=== PATIENT | female | born 1975 | race Caucasian/White ===

== ENCOUNTER → 2016-06-11 | Outpatient (CLI) | payer OTHER ==
[~2016-06-11] MED LIST: CLIMARA0.075 MG/2 TD; GLUCOPHAGE500 MG/TAB PO; IRON325 MG PO; MAGNESIUM500 MG PO; METHAMAZOLE; PRINIVIL20 MG; STOOL SOFTENER; TAPAZOLE5 MG PO
== END ==
LOC: COL.RAD 09:59
DX: E05.21 Thyrotoxicosis with toxic multinodular goiter with thyrotoxic crisis or storm (principal)
CPT/HCPCS: A9516

== ENCOUNTER → 2019-11-27 | Outpatient (CLI) | payer OTHER | LOC: COL.RAD 07:30 | DX: H91.23 Sudden idiopathic hearing loss, bilateral (principal); H90.41 Sensorineural hearing loss, unilateral, right ear, with unrestricted hearing on the contralateral side | CPT/HCPCS: A9585 ==

== ENCOUNTER 2020-12-28 21:56 | Inpatient (IN) | payer OTHER ==
[~2020-12-28] VITALS: Wt 86.4 kg
[2020-12-28 22:26] LABS: BASO % 0.3 % (0.0-2.0); EOS # 0.3 K/mm3 (0.0-0.7); EOS % 2.2 % (0-4.0); GRAN # 10.4 K/mm3 (1.4-6.5); GRAN % 67.8 % (42.2-75.2); HEMATOCRIT 45.9 % (37.0-47.0); HEMOGLOBIN 15.3 g/dl (12.5-16.0); LYMPH # 3.7 K/mm3 (1.2-3.4); LYMPH % 23.9 % (20.0-51.0); MEAN CELL VOLUME 81 fl (80.0-100.0); MEAN CORPUSCULAR HEMOGLOBIN 27 pg (27.0-31.0); MEAN CORPUSCULAR HGB CONC 33 g/dl (33.0-37.0); MEAN PLATELET VOLUME 10.8 fl (7.4-10.4); MONO # 0.9 K/mm3 (0.1-0.6); MONO % 5.5 % (1.7-9.3); PLATELET COUNT 303 K/mm3 (130-400)
[2020-12-28 22:40] LABS: COLLECTION METHOD CLEAN CATCH
[2020-12-28 22:41] LABS: ALBUMIN 4.2 gm/dL (3.5-5.0); C-REACTIVE PROTEIN 0.84 mg/dL (0.00-0.50); CALCIUM 9.9 mg/dL (8.4-10.2); CREATININE, serum 0.83 mg/dL (0.57-1.11); TOTAL PROTEIN 8.2 gm/dL (6.2-8.1)
[2020-12-28 22:57] LABS: MUCOUS Present /lpf; PH 7 (5-8); URINE APPEARANCE Hazy; URINE BACTERIA None Seen /hpf; URINE BILIRUBIN Negative (NEGATIVE); URINE BLOOD 1+ (NEGATIVE); URINE COLOR Yellow; URINE GLUCOSE 3+ (NEGATIVE); URINE KETONE Negative (NEGATIVE); URINE LEUKOCYTE ESTERASE Negative (NEGATIVE); URINE NITRATE Negative (NEGATIVE); URINE PROTEIN(semi-quant) Negative (NEGATIVE); URINE RBC 0-2 /hpf
--- NOTE | 2020-12-29 01:31 | NUR ---
Arrived to unit, awake, alert, oriented x 4, able to make all needs known, pain 5/10 to abdomen, c/o light nausea,NPO status observed, updated on plan of care.
[2020-12-29] MEDS ORDERED: GLUCOPHAGE1000 MG PO (01:35)
[2020-12-29] MEDS ORDERED: JARDIANCE25 PO (01:36)
[2020-12-29] MEDS ORDERED: CRESTOR 10MG10 MG PO (01:36)
[2020-12-29 03:39] VITALS: BP 123/53; PULSE 89; TEMP 97.9
[2020-12-29 07:40] VITALS: BP 113/54; PULSE 95; TEMP 98.4
--- NOTE | 2020-12-29 08:04 | NUR ---
NOTIFIED DR. TURCIOS OF COMPLETED MED RECONCILIATION BY SLIP PRESSER.
--- NOTE | 2020-12-29 09:23 | NUR ---
JOLENE met with the patient to discuss discharge plan. The patient live in [place] with her , Jorge (ph#[phone]). She reports independence with ADLs and does not have any DME. The patient states that she receives primary care at [facility] and she receives her medications on [place]. SHe reports no difficulties obtaining her meds. The patient does not have a DPOA-HC and she was not interested in completing one at this time. The patient plans to return home with her upon discharge. No additional needs at this time. *Discharge plan: home with *
--- NOTE | 2020-12-29 10:52 | NUR ---
PT ALERT AND ORIENTED. PT ABDOMEN DISTENDED, SOFT AND NON-TENDER TO TOUCH. PT REPORTS PAIN 8/10 DURING 0800 ASSESSMENT, MANAGED WITH IV MEDICATIONS PER ORDERS. PT HAS BILATERAL UPPER AND LOWER EXTREMITY EDEMA, NON-PITTING AT THIS TIME. PT REPORTS FEELING "PUFFY." PT HAS HYPERACTIVE BOWEL SOUNDS AUSCULTATED, PT STATES PASSING SMALL AMOUNTS OF GAS. PT HAS 1+ PULSES IN DORSALIS PEDIS AND POSTERIOR TIBIAL BILATERALLY, CAP REFILL <3S. PT CALL LIGHT WITHIN REACH, NO OHTER NEEDS AT THIS TIME.
[2020-12-29 11:35] VITALS: BP 140/54; PULSE 85; TEMP 98.4
--- NOTE | 2020-12-29 11:52 | NUR ---
PT PAIN ASSESSMENT 09/10. PT REPORTS FEELING NAUSEA. PAIN MEDICATION AND ANTI-EMETIC GIVEN PER ORDERS.
[2020-12-29 13:14] VITALS: BP 124/64; PULSE 91; TEMP 98.6
--- NOTE | 2020-12-29 13:34 | NUR ---
NOTIFIED DR. TURCIOS OF PT EMESIS, GREEN, BILE LIKE IN APPEARANCE. RECEIVED ORDERS FOR SECOND DOSING OF ZOFRAN AND NG TUBE TO LOW-INTERMITTENT SUCTION.
--- NOTE | 2020-12-29 14:10 | NUR ---
Primary nurse was assisted with [phone] patient care by [employer] student Annabelle Bob and [employer] instructor Carline Albrecht MSN, RN.
--- NOTE | 2020-12-29 14:36 | NUR ---
Pt NG tube placed at this time. Pt premedicated with iv pain medications per orders. Zofran given per orders. Measusred at 64cm. Pt tolerated placement well, 250 mls out with initial placement on low to intermittent suction. Gastric pop heard with insertion of air upon auscultation. Radiology notified for CXR verification.
[2020-12-29 15:25] VITALS: BP 121/52; PULSE 98; TEMP 97.8
--- NOTE | 2020-12-29 17:40 | NUR ---
DR. TURCIOS NOTIFIED VERBALLY OF MOST RECENT NAUSEA EPISODE. CONTACTED FOR VTE ORDERS.
--- NOTE | 2020-12-29 18:05 | NUR ---
PT CONTINUING ON PLAN OF CARE. PT HAD EMESIS AND NAUSEA TODAY. PAIN IN ABDOMEN, MANAGED WITH PRN MEDICATION PER ORDERS. PT HAD NG TUBE PLACED TODAY VERIFIED WITH CXR. PT ABLE TO CALL FOR NEEDS. IV FLUIDS CONTINUING AT ORDERED RATE. PT VITAL SIGNS STABLE AT THIS TIME.
--- NOTE | 2020-12-29 19:30 | NUR ---
Report received, assumed care for shift production supervisor. Assessment complete. A&Ox4. Denies nausea/shortness of breath/pain. States earlier dilaudid dose helped with pain. Bowel sounds active all four quadrants. IV to right AC flushes without difficulty. NG tube to right [id number]/green output. Plan of care discussed for this shift to include meds/pain control/NG tube to suction and clalling for questions/concerns. Verbalizes understanding/denies needs. Call light in reach. Will monitor.
[2020-12-29 19:49] VITALS: BP 127/59; PULSE 102; TEMP 98.3
[2020-12-30] VITALS (13 sets, daily range): BP systolic 101–145; BP diastolic 49–74; PULSE 94–103; TEMP 97.6–98.6
--- NOTE | 2020-12-30 03:45 | NUR ---
Called with c/o pain-rating pain 09/10 to abdomen-described as sharp intermittent jabs. Dilaudid given per dr khanna. Does state she feels as if her "bloating and distension" is better and began to feel less pressure and discomfort at 0100. Continues to have brown output to NG. Denies nausea. Call light in reach. Will monitor.
--- NOTE | 2020-12-30 05:22 | NUR ---
Rested off and on this shift with dilaudid given IV for pain x3 with good results. States she feels "less full" than when admitted. NG output 350mls greenish/brown fluid. Denies current questions/concerns. Call light in reach. Will monitor.
[2020-12-30 07:15] LABS: BASO # 0.1 K/mm3 (0.0-0.2); BASO % 0.3 % (0.0-2.0); EOS # 0.2 K/mm3 (0.0-0.7); EOS % 1.1 % (0-4.0); GRAN # 14.8 K/mm3 (1.4-6.5); GRAN % 80.7 % (42.2-75.2); HEMATOCRIT 47.4 % (37.0-47.0); HEMOGLOBIN 15.4 g/dl (12.5-16.0); LYMPH # 2.3 K/mm3 (1.2-3.4); LYMPH % 12.3 % (20.0-51.0); MEAN CELL VOLUME 83 fl (80.0-100.0); MEAN CORPUSCULAR HEMOGLOBIN 27 pg (27.0-31.0); MEAN CORPUSCULAR HGB CONC 33 g/dl (33.0-37.0); MEAN PLATELET VOLUME 11.2 fl (7.4-10.4); MONO # 0.9 K/mm3 (0.1-0.6); MONO % 5.1 % (1.7-9.3); PLATELET COUNT 249 K/mm3 (130-400); RED BLOOD COUNT 5.72 M/mm3 (4.10-5.30); REDCELL DISTRIBUTION WIDTH-CV 14.4 % (11.5-14.5)
[2020-12-30 07:26] LABS: CALCIUM 8.7 mg/dL (8.4-10.2); CREATININE, serum 0.67 mg/dL (0.57-1.11); POTASSIUM 4.1 mmol/L (3.5-4.5)
--- NOTE | 2020-12-30 10:17 | NUR ---
Patient is getting ready to go down to OR for procedure w/ Dr. Gan. Patient will go to surgical 328 after the procedure. Pre-procedure IV fluids were started.
--- NOTE | 2020-12-30 14:12 | NUR ---
Patient post op laparoscopy/[place] at 1350. See assessment. Abdomen soft, non distended, tender. Lap sites to abdomen with scant amount of bloody drainage noted. Bowel sounds active x quads. No flatus. NGT in place to LIS. Post op checks initiated. No c/o at this time.
--- NOTE | 2020-12-30 14:30 | NUR ---
Primary nurse was assisted with [phone] patient care by [employer] student Annabelle Ferrell and [employer] instructor Carline Albrecht MSN, RN.
[2020-12-31 03:21] VITALS: BP 118/62; PULSE 93; TEMP 98
[2020-12-31 08:00] VITALS: BP 122/62; PULSE 93; TEMP 98.5
[2020-12-31 08:02] LABS: BASO % 0.2 % (0.0-2.0); EOS # 0.1 K/mm3 (0.0-0.7); EOS % 0.4 % (0-4.0); GRAN # 10.3 K/mm3 (1.4-6.5); GRAN % 73.5 % (42.2-75.2); HEMATOCRIT 40.7 % (37.0-47.0); LYMPH # 2.6 K/mm3 (1.2-3.4); LYMPH % 18.5 % (20.0-51.0); MEAN CELL VOLUME 83 fl (80.0-100.0); MEAN CORPUSCULAR HEMOGLOBIN 27 pg (27.0-31.0); MEAN CORPUSCULAR HGB CONC 32 g/dl (33.0-37.0); MEAN PLATELET VOLUME 11.5 fl (7.4-10.4); MONO % 6.9 % (1.7-9.3); PLATELET COUNT 243 K/mm3 (130-400); RED BLOOD COUNT 4.89 M/mm3 (4.10-5.30); REDCELL DISTRIBUTION WIDTH-CV 14.5 % (11.5-14.5)
[2020-12-31 08:26] LABS: CALCIUM 8.4 mg/dL (8.4-10.2); CREATININE, serum 0.65 mg/dL (0.57-1.11)
--- NOTE | 2020-12-31 09:30 | NUR ---
Patient requesting pain medication. 07/11. Dilaudid per orders. Reports some cramping pain. Patient assisted up to the chair this am. Ng to Lis. Green output. Npo with ice chips, denies nausea. Lap site drg intact. Will monitor.
[2020-12-31 11:11] VITALS: BP 116/69; PULSE 90; TEMP 97.5
--- NOTE | 2020-12-31 12:35 | NUR ---
Patient to the bathroom & back to bed. Reports increased pain. Dilaudid for pain. SHe remains npo. Will monitor.
--- NOTE | 2020-12-31 15:46 | NUR ---
Patient resting at this time
[2020-12-31 16:00] VITALS: BP 109/68; PULSE 82; TEMP 97.5
--- NOTE | 2020-12-31 19:04 | NUR ---
Patient has tolerated her Ng tube being clamped. She denies nausea, tolerating ice chips. Patient reports flatus. Denies needs. Bedside report to Roslyn ALEXANDRA.
--- NOTE | 2020-12-31 19:33 | NUR ---
PT RESTING IN BED. NG CLAMPED. NO NAUSEA. PT REPORTS PASSING FLATUS.
[2020-12-31 20:14] VITALS: BP 118/63; PULSE 89; TEMP 98
--- NOTE | 2020-12-31 21:22 | NUR ---
SEE MAR FOR PAIN MED GIVEN FOR H/A AND PRESSUSRE OF NG TUBE. NO NAUSEA. PASSING GAS.
[2021-01-01] VITALS (7 sets, daily range): BP systolic 117–137; BP diastolic 61–78; PULSE 81–94; TEMP 97.7–98.6
--- NOTE | 2021-01-01 02:53 | NUR ---
LOWER PELVIC DRSG WITH OLD DRIED DRAG. CHANGED TO BANDAID.
[2021-01-01 09:07] LABS: BASO % 0.2 % (0.0-2.0); EOS # 0.3 K/mm3 (0.0-0.7); EOS % 2.5 % (0-4.0); GRAN # 8.9 K/mm3 (1.4-6.5); HEMATOCRIT 39.5 % (37.0-47.0); HEMOGLOBIN 12.7 g/dl (12.5-16.0); LYMPH # 2.1 K/mm3 (1.2-3.4); MEAN CELL VOLUME 83 fl (80.0-100.0); MEAN CORPUSCULAR HEMOGLOBIN 27 pg (27.0-31.0); MEAN CORPUSCULAR HGB CONC 32 g/dl (33.0-37.0); MONO # 0.7 K/mm3 (0.1-0.6); MONO % 5.7 % (1.7-9.3); PLATELET COUNT 219 K/mm3 (130-400); RED BLOOD COUNT 4.74 M/mm3 (4.10-5.30); REDCELL DISTRIBUTION WIDTH-CV 13.9 % (11.5-14.5)
[2021-01-01 09:26] LABS: ALBUMIN 3.1 gm/dL (3.5-5.0); CALCIUM 8.2 mg/dL (8.4-10.2); CREATININE, serum 0.6 mg/dL (0.57-1.11); PHOSPHOROUS 2.6 mg/dL (2.3-4.7)
--- NOTE | 2021-01-01 12:54 | NUR ---
NG tube pulled out, pt tolerated well. Jello provided. Discussed pain management with patient. No needs at this time. Call light within reach.
--- NOTE | 2021-01-01 21:08 | NUR ---
PT AMBULATING IN HALLWAY INDEPENDENTLY, GAIT STEADY. BACK TO ROOM. REPORTS PASSING GAS AND VOIDING WITHOUT PROBLEM. HAS ABD LAP SITES X4, BANDAIDS D/I. MEDICATED WITH NORCO 1 TAB PO FOR ABD PAIN. INCREASED DIET TO FULL LIQUID.
--- NOTE | 2021-01-02 02:58 | NUR ---
Pt awake, asking for pain meds. Has distended stomach, encouraged ambulation. Moon 1 tab po given at this time.
[2021-01-02 03:31] VITALS: BP 135/73; PULSE 80; TEMP 98.6
--- NOTE | 2021-01-02 05:50 | NUR ---
PT HAS MODERATE FORMED BROWN STOOL AT THIS TIME.
[2021-01-02 06:10] LABS: BASO % 0.2 % (0.0-2.0); EOS # 0.4 K/mm3 (0.0-0.7); GRAN # 9.6 K/mm3 (1.4-6.5); GRAN % 78.6 % (42.2-75.2); HEMOGLOBIN 12.3 g/dl (12.5-16.0); LYMPH # 1.5 K/mm3 (1.2-3.4); LYMPH % 12.5 % (20.0-51.0); MEAN CELL VOLUME 80 fl (80.0-100.0); MEAN CORPUSCULAR HEMOGLOBIN 27 pg (27.0-31.0); MEAN CORPUSCULAR HGB CONC 33 g/dl (33.0-37.0); MEAN PLATELET VOLUME 10.9 fl (7.4-10.4); MONO # 0.6 K/mm3 (0.1-0.6); MONO % 5.1 % (1.7-9.3); PLATELET COUNT 233 K/mm3 (130-400); REDCELL DISTRIBUTION WIDTH-CV 13.7 % (11.5-14.5)
[2021-01-02 06:14] LABS: HEMATOCRIT 36.9 % (37.0-47.0)
[2021-01-02 06:37] LABS: CREATININE, serum 0.57 mg/dL (0.57-1.11); POTASSIUM 3.6 mmol/L (3.5-4.5)
[2021-01-02 07:38] VITALS: BP 122/76; PULSE 80; TEMP 98.4
--- NOTE | 2021-01-02 07:44 | NUR ---
Patient resting in bed. Eating her full liquid breakfast. Slight pain to her left side of abdomen, but denies the need for medication at this time. She denies SOB. Ivf per orders. Abdomen soft, lap site edges well approximated. Bandaids removed. She reports positive flatus. Will monitor.
--- NOTE | 2021-01-02 10:06 | NUR ---
Initial visit; Patient thanked Foundry Worker for stopping by and keeping her in Foundry Worker's prayers.
--- NOTE | 2021-01-02 10:44 | NUR ---
Patient has taken a shower this am. Motrin relieved her pain. Will monitor.
[2021-01-02 11:52] VITALS: BP 126/74; PULSE 78; TEMP 98.2
--- NOTE | 2021-01-02 14:01 | NUR ---
Patient did well with full liquids lunch. Iv to Int. rounded & plan of care reviewed.
[2021-01-02 15:15] VITALS: BP 140/67; PULSE 80; TEMP 98.3
--- NOTE | 2021-01-02 18:09 | NUR ---
Motrin continues to manage pain. Tolerating full liquids. No other needs at this time. Will report off to nightnurse
[2021-01-02 19:27] VITALS: BP 131/72; PULSE 89; TEMP 99.2
[2021-01-02 23:47] VITALS: BP 126/68; PULSE 73; TEMP 98.3
[2021-01-03 03:13] VITALS: BP 115/70; PULSE 73; TEMP 98
--- NOTE | 2021-01-03 06:18 | NUR ---
VSS, AFEBRILE, NO C/O PAIN THIS SHIFT, ABD INCISIONS C/D/I, WITH SOME REDNESS TO LOWER INCISION SITE. REPORTS LOOSE STOOLS, WILL START LOW FIBER DIET FOR BREAKFAST.
[2021-01-03] MEDS ORDERED: NORCO 325 MG-51 TAB PO (07:37)
[2021-01-03 07:48] VITALS: BP 131/93; PULSE 88; TEMP 98.2
--- NOTE | 2021-01-03 09:15 | NUR ---
Patient alert and oriented, answers questions appropriately. See assessment. Abdomen soft, non tender, non distended. Bowel sounds active x4 quads. +Flatus. +Bowel movement. Low fiber diet reviewed with patient. No c/o at this time.
--- NOTE | 2021-01-03 10:55 | NUR ---
Discharge instructions reviewed with patient, verbalized understanding. Discharged via wheelchair to auto/home with spouse at 1005.
== END 2021-01-03 10:05 | disposition home or self-care (01) | DRG 336 ==
LOC: COL.ER 21:56 → MEDICAL 12-29 00:15 → SURG 12-30 10:51
PROVIDERS: Emergency Medicine; Surgery; ADMIT Surgery
PROC: 0DN84ZZ Release Small Intestine, Percutaneous Endoscopic Approach (ICD-10-PCS; 2020-12-30)
PROC: 0DNU4ZZ Release Omentum, Percutaneous Endoscopic Approach (ICD-10-PCS; principal; 2020-12-30 10:30)
DX: K56.50 Intestinal adhesions [bands], unspecified as to partial versus complete obstruction (principal); R18.8 Other ascites; I10 Essential (primary) hypertension; E11.9 Type 2 diabetes mellitus without complications; E03.9 Hypothyroidism, unspecified; K42.9 Umbilical hernia without obstruction or gangrene; Z85.43 Personal history of malignant neoplasm of ovary; Z79.84 Long term (current) use of oral hypoglycemic drugs
CPT/HCPCS: A4314; J0330; J0690; J1100; J1170; J1885; J2250; J2405; J2704; J2795; J3010; J7030; Q9967